=== PATIENT | female | born 1995 | race Caucasian/White ===

== ENCOUNTER 2019-11-26 08:25 | Day surgery (SDC) | payer MEDICAID, SELFPAY ==
[~2019-11-26] VITALS: Ht 162.6 cm; Wt 81.6 kg
[2019-11-26] MEDS ORDERED: LIDOCAINE 2%, 20 ML MDV INJ ONE (08:26)
[2019-11-26] MEDS ORDERED: methylPREDNISolone ACETATE 80 MG/ML IM ONE (08:26)
[2019-11-26] MEDS ORDERED: IOPAMIDOL 50 ML VIAL IV ONE (08:26)
[2019-11-26] MEDS ORDERED: DIPHENHYDRAMINE INJ 50 MG/ML VIAL ONE (09:39)
[2019-11-26] MEDS ORDERED: MIDAZOLAM HCL 5 MG/5 ML VIAL ONE (09:39)
[2019-11-26 10:06] LABS: HCG,QUAL RESULT NEGATIVE (NEGATIVE)
[2019-11-26 10:57] VITALS: BP_SYST 106
== END 2019-11-26 12:35 | disposition home or self-care (01) ==
LOC: SDS 08:25 → SMU 08:26 → SDS 12:35
PROVIDERS: ATTEND Internal Medicine
DX: M51.16 Intervertebral disc disorders with radiculopathy, lumbar region (principal); M47.26 Other spondylosis with radiculopathy, lumbar region; G89.4 Chronic pain syndrome; Z79.899 Other long term (current) drug therapy; Z20.828 Contact with and (suspected) exposure to other viral communicable diseases
CPT/HCPCS: 62323; 84703; J1040; J1200; J2001; J2250; J7120; Q9967; U0003; 76000